=== PATIENT | female | born 1995 | race Asian ===

== ENCOUNTER 2016-08-14 16:14 | Emergency (ER) | payer OTHER ==
--- NOTE | 2016-08-14 17:48 | ED ---
Queta Wong Matthew, scribed for Aime Kwon MD on 08/14/16 at 1712 . Complex/Multi-Sys Presentation - HPI Summary HPI Summary: A 21 y/o female presents to the ED after a sudden panic attack at 15:00, which lasted for approximately an hour. At that time, the patient had SOB, fatigue, and weakness. Currently, the patient denies chest pain and SOB and states that she feels fine. The patient has had similar symptoms in the past. Her last panic attack was last . The patient takes hydroxyzine to sleep. She was on anxiety medication, but has not taken the medication since winter. LNMP was 2 days ago. - History Of Current Complaint Chief Complaint: EDWeakness Time Seen by Provider: 08/14/16 16:20 Hx Obtained From: Patient Onset/Duration: Sudden Onset, Lasting Hours - 1.5, Resolved Timing: Hours - 1 Severity Currently: None Severity Initially: Moderate Location: Negative Associated Signs And Symptoms: Positive: Weakness - general, SOB - fatigue, Other - Fatigue - since resolved - Allergies/Home Medications Allergies/Adverse Reactions: Allergies Allergy/AdvReac Type Severity Reaction Status Date / Time No Known Allergies Allergy Verified 08/12/15 01:43 PMH/Surg Hx/FS Hx/Imm Hx Psychiatric History: Reports: Hx Anxiety, Hx Depression Denies: Hx Eating Disorder Infectious Disease History: No Infectious Disease History: Denies: Traveled Outside the [place] in Last 30 Days - Family History Known Family History: Negative: Cardiac Disease, Hypertension, Diabetes - Social History Alcohol Use: None Hx Substance Use: No Substance Use Type: Reports: None Hx Tobacco Use: No Smoking Status (MU): Never Smoked Tobacco Review of Systems Positive: Fatigue - since resolved Eyes: Negative ENT: Negative Negative: Chest Pain Positive: Shortness Of Breath - since resolved Gastrointestinal: Negative Genitourinary: Negative Musculoskeletal: Negative Skin: Negative Positive: Weakness - since resolved Psychological: Normal All Other Systems Reviewed And Are Negative: Yes Physical Exam - Summary Physical Exam Summary: VITAL SIGNS: Reviewed. GENERAL: Patient is a well developed and nourished female who is lying comfortable in the stretcher. Patient is not in any acute respiratory distress. HEAD AND FACE: No signs of trauma. No ecchymosis, hematomas or skull depressions. No sinus tenderness. EYES: PERRLA, EOMI x 2, No injected conjunctiva, no nystagmus. EARS: Hearing grossly intact. Ear canals and tympanic membranes are within normal limits. MOUTH: Oropharynx within normal limits. NECK: Supple, trachea is midline, no adenopathy, no JVD, no carotid bruit, no c- spine tenderness, neck with full ROM. CHEST: Symmetric, no tenderness at palpation LUNGS: Clear to auscultation bilaterally. No wheezing or crackles. CVS: Regular rate and rhythm, S1 and S2 present, no murmurs or gallops appreciated. ABDOMEN: Soft, non-tender. No signs of distention. No rebound no guarding, and no masses palpated. Bowel sounds are normal. EXTREMITIES: FROM in all major joints, no edema, no cyanosis or clubbing. NEURO: Alert and oriented x 3. No acute neurological deficits. Speech is normal and follows commands. SKIN: Dry and warm PSYCH: quiet, denies any suicidal thoughts or plan. No homicidal thoughts or plan. No signs of psychosis or pressure speech. No tangential speech. Triage Information Reviewed: Yes Vital Signs On Initial Exam: Initial Vitals Temp Pulse Resp BP Pulse Ox 98.4 F 84 16 102/72 99 08/14/16 16:31 08/14/16 16:31 08/14/16 16:31 08/14/16 16:31 08/14/16 16:31 Vital Signs Reviewed: Yes Diagnostics - Vital Signs Vital Signs Temp Pulse Resp BP Pulse Ox 08/14/16 16:31 98.4 F 84 16 102/72 99 - Laboratory Lab Statement: Any lab studies that have been ordered have been reviewed, and results considered in the medical decision making process. Complex Multi-Symp Course/Dx Assessment/Plan: A 21 y/o female presents to the ED after a sudden panic attack at 15:00, which lasted for approximately an hour. At that time, the patient had SOB, fatigue, and weakness. Currently, the patient denies chest pain and SOB and states that she feels fine. The patient has had similar symptoms in the past. Her last panic attack was last semester. The patient takes hydroxyzine to sleep. She was on anxiety medication, but has not taken the medication since winter break. LNMP was 2 days ago. In the ED course, the patients panic attack has resolved. She reports it lasted for approximately on an hour. She had the same symptoms as previous panic attacks. She denies chest pain, SOB, headache, dizziness, n/v/d/c. The patient did not require any anti-anxiety meds, and she is fine now. She was observed for approximately 1.5 hours without symptoms, therefore she will be discharged home to follow-up with her PCP. I discussed all the findings and test results with the patient. Patient was instructed to return to the emergency room immediately if any of the symptoms return or worsens. Plan of care was discussed with the patient and understands and agrees. All questions were answered at patient satisfaction. There were no further complaints or concerns. Lung exam before discharge: CTA B/L. Good air exchange. No wheezing or crackles heard. CVS: S1 and S2 present. No murmurs appreciated. Patient is alert and oriented x 3. Patient is hemodynamically stable. Patient will be discharged home with follow up instructor physical in the next 2-3 days - Diagnoses Differential Diagnoses/HQI/PQRI: Other - Anxiety, panic attacks Provider Diagnoses: Panic attack Discharge - Discharge Plan Condition: Stable Disposition: HOME Patient Education Materials: Panic Attack (ED) Referrals: [facility] LILLIE Francisco [Primary Care Provider] - 2 Days Additional Instructions: Please follow-up with [facility]. The documentation as recorded by the Queta adams Matthew accurately reflects the service I personally performed and the decisions made by me, Aime Kwon MD.
[2016-08-14 18:37] VITALS: BP 115/66
== END 2016-08-14 18:10 | disposition home or self-care (01) ==
LOC: ED 16:14
DX: F41.0 Panic disorder [episodic paroxysmal anxiety] (principal); R53.1 Weakness; R06.02 Shortness of breath; R53.83 Other fatigue
CPT/HCPCS: 99281